=== PATIENT | female | born 2000 | race American Indian/Alaskan Native ===

== ENCOUNTER 2021-06-08 14:14 | Inpatient (IN) | payer MEDICAID ==
[2021-06-08] MEDS ORDERED: LACTATED RINGERS 1,000 ML IV ONE (14:50)
[2021-06-08 15:13] LABS: Bilirubin,Urine NEG (Negative); Blood,Urine SM (Negative); Calcium Oxalate Crystals,Urine 2+; Color,Urine Yellow (Yellow); Hyaline Casts,Urine 1 /LPF; Mucus,Urine 2+ /HPF
[2021-06-08 15:38] LABS: Amphetamine Screen,Urine Negative; Benzodiazepines Screen,Urine Negative; Cocaine Screen,Urine Negative; Methadone Screen,Urine Negative; Opiate Screen,Urine Negative
[2021-06-08 15:51] LABS: Cannabinoid Screen,Urine Positive
[2021-06-08 16:57] LABS: Hematocrit 32.1 % (30.3-42.9); Hemoglobin 10.4 gm/dl (10.1-14.3); Mean Corpuscular HGB Conc 32 % (30-34); Mean Corpuscular Volume 83 fl (79-97); Platelet Count 228 K/mm3 (140-440); Red Blood Count 3.86 M/mm3 (3.65-5.03); Red Cell Distribution Width 15.2 % (13.2-15.2)
[2021-06-08 17:08] LABS: Alanine Aminotransferase 8 units/L (7-56); Albumin 3.3 g/dL (3.9-5); Blood Urea Nitrogen 6 mg/dL (7-17); Calcium 8.9 mg/dL (8.4-10.2); Hemolysis Index 17
[2021-06-08 17:11] LABS: BUN/Creatinine Ratio 12
--- NOTE | 2021-06-08 18:20 | Ultrasound Report ---
US OB LIMITED, US OB BPP WO NON-STRESS INDICATION / CLINICAL INFORMATION: r/o apruption. COMPARISON: None available. FINDINGS: breathing movement = 2 Gross body movement = 2 tone = 2 Qualitative amniotic fluid volume = 2 Total biophysical score = 8/8 Amniotic fluid index is 7.5 cm. Presentation is Cephalic. heart rate is 146 beats per minute. There is a grade 2 anterior placenta. IMPRESSION: 1. biophysical profile = 8/8 2. Amniotic fluid index is within normal limits. Signer Name: Duc Carbajal MD Signed: 06/08/2021 6:15 PM Workstation Name: [id number]
[2021-06-08] MEDS ORDERED: BUTORPHANOL 2 MG/1 ML INJ IV PRN (18:40)
[2021-06-08] MEDS ORDERED: ZOLPIDEM 5 MG TAB PO PRN (18:40)
[2021-06-08] MEDS ORDERED: BUTORPHANOL 2 MG/1 ML INJ ONE (18:42)
--- NOTE | 2021-06-08 18:53 | History and Physical Report ---
History of Present Illness Date of examination: 06/08/21 Date of admission: 06/08/21 14:15 Chief complaint: Abdominal and pelvic pain coupled with vaginal bleeding over past 4 weeks. Patient can not be relied on to present to the hospital due to lack of transportation. She stated she was "hospitalized" at [facility] over the recent past for her complaints. Stated she was not told of reason for her pains or bleeding. Moving on office exam table, today, revealed severe distress that made patient scream out in pains. She was therefore sent in to L&D for evaluation and MFM consultation. Dr. Hemphill responded and recommended delivery as soon as possible on account of her 37+1wks, x2 previous cesareans and concern for uterine incisional dehiscence, abruptio placentae. Dr. Hemphill opined that non of these potentially catastrophic scenarios was worth the risk at term. History of present illness: Abdominal and pelvic pain coupled with vaginal bleeding over past 4 weeks. Patient can not be relied on to present to the hospital due to lack of transportation. She stated she was "hospitalized" at [facility] over the recent past for her complaints. Stated she was not told of reason for her pains or bleeding. Moving on office exam table, today, revealed severe distress that made patient scream out in pains. She was therefore sent in to L&D for evaluati on and MFM consultation. Dr. Hemphill responded and recommended delivery as soon as possible on account of her 37+1wks, x2 previous cesareans and concern for uterine incisional dehiscence, abruptio placentae. Dr. Hemphill opined that non of these potentially catastrophic scenarios was worth the risk at term. Past History Past Medical History: no pertinent history Past Surgical History: section (x2) [employer] History: trichomonas Family/Genetic History: none Social history: lives with family - Obstetrical History Expected Date of Delivery: 06/28/21 Actual Gestation: 37 Week(s) 1 Day(s) : 3 Para: 2 Hx # Term Pregnancies: 2 Medications and Allergies Allergies Allergy/AdvReac Type Severity Reaction Status Date / Time No Known Allergies Allergy Verified 06/08/21 14:48 Home Medications Medication Instructions Recorded Confirmed Last Taken Type One Daily Tablet 1 tab PO 06/08/21 Unknown History Active Meds: Active Medications Butorphanol Tartrate (Butorphanol 2 Mg/1 Ml Inj) 2 mg IV Q2H PRN PRN Reason: Pain , Severe (7-10) Zolpidem Tartrate (Zolpidem 5 Mg Tab) 5 mg PO QHS PRN PRN Reason: Sleep Review of Systems All systems: negative Constitutional: chronic pain Cardiovascular: no chest pain Respiratory: no shortness of breath, no pain on inspiration Breasts: normal Gastrointestinal: abdominal pain Genitourinary: vaginal bleeding, pelvic pain, no leakage of fluid Rectal Exam: deferred Neurological: no head injury Hematologic/Lymphatic: no easy bruising - Vital Signs Vital signs: Vital Signs Pulse BP 73 120/85 06/08/21 15:04 06/08/21 15:04 Temp Pulse Resp BP Pulse Ox 98.3 F 95 H 20 113/75 99 06/08/21 18:02 06/08/21 18:38 06/08/21 15:07 06/08/21 17:42 06/08/21 18:38 - Physical Exam Breasts: Positive: deferred Lungs: Positive: Normal air movement Abdomen: Positive: normal appearance, soft. Negative: guarding Genitourinary (Female): Positive: normal external genitalia, other (material obtained on spec exam revealed old bleeding) Vulva: both: normal Vagina: Positive: discharge (altered blood) Anus/Rectum: Positive: normal perianal skin, heme negative. Negative: rectal mass, hemorrhoids Extremities: Positive: normal Deep Tendon Reflex Grade: Normal +2 - Obstetrical FHR: auscultation normal Cervical Dilatation: 0 Cervical Effacement Percentage: 60 station: VTX 0 Results Result Diagrams: 06/08/21 15:28 06/08/21 15:28 Abnormal lab results 06/08/21 06/08/21 06/08/21 Range/Units 15:02 15:28 15:28 MCH 27 L (28-32) pg Sodium 136 L (137-145) mmol/L Carbon Dioxide 20 L (22-30) mmol/L BUN 6 L (7-17) mg/dL Creatinine 0.5 L (0.6-1.2) mg/dL Alkaline Phosphatase 212 H (35-129) units/L Total Protein 6.2 L (6.3-8.2) g/dL Albumin 3.3 L (3.9-5) g/dL Urine WBC (Auto) 16.0 H (0.0-6.0) /HPF All other labs normal. Assessment and Plan - Patient Problems (1) Term Current Visit: Yes Status: Acute (2) Abdominal pain affecting Current Visit: Yes Status: Acute (3) Vaginal bleeding during , antepartum Current Visit: Yes Status: Acute Plan to address problem: Ultrasound exam, CBC, CMP, UDS, MFM consult. Dr. Hemphill recommended delivery as soon as possible on account of her 37+1wks, x2 previous cesareans and concern for uterine incisional dehiscence, abruptio placentae. Dr. Hemphill opined that non of these potentially catastrophic scenarios was worth the risk at term. (4) Previous delivery affecting , antepartum Current Visit: Yes Status: Acute
[2021-06-08] MEDS ORDERED: BICITRA ORAL LIQD 30ML PO ONE (19:08)
[2021-06-08] MEDS ORDERED: METOCLOPRAMIDE 10 MG/2 ML INJ IV ONE (19:08)
[2021-06-08] MEDS ORDERED: FAMOTIDINE 20 MG/2 ML INJ IV ONE (19:08)
[2021-06-08] MEDS ORDERED: LACTATED RINGERS 1,000 ML IV SCH (19:15)
[2021-06-08] MEDS ORDERED: OXYTOCIN DRIP 30 UNITS/500 ML BAG IV SCH (20:00)
[2021-06-08] MEDS ORDERED: ceFAZolin/Water 2 GM/20 ML 2 GM/20 ML SYRINGE IV NR (20:00)
[2021-06-08 20:39] LABS: Basophils % (Auto) 0.3 % (0.0-1.8); Eosinophils % (Auto) 0.2 % (0.0-4.3); Hematocrit 30.2 % (30.3-42.9); Hemoglobin 9.8 gm/dl (10.1-14.3); Lymphocytes # (Auto) 1.9 K/mm3 (1.2-5.4); Mean Corpuscular HGB Conc 32 % (30-34); Mean Corpuscular Volume 84 fl (79-97); Monocytes # (Auto) 0.8 K/mm3 (0.0-0.8); Monocytes % (Auto) 8.8 % (0.0-7.3); Platelet Count 228 K/mm3 (140-440); Red Blood Count 3.61 M/mm3 (3.65-5.03); Red Cell Distribution Width 15.3 % (13.2-15.2)
[2021-06-08 20:57] LABS: Hepatitis C Virus Antibody Non-Reactive (NonReactive)
[2021-06-09] MEDS ORDERED: METOCLOPRAMIDE 10 MG/2 ML INJ IV ONE (07:00)
[2021-06-09] MEDS ORDERED: FAMOTIDINE 20 MG/2 ML INJ IV ONE (07:00)
[2021-06-09] MEDS ORDERED: ceFAZolin/STERILE WATER 2 GM/20 ML SYRINGE IV NR (07:00)
[2021-06-09] MEDS ORDERED: BICITRA ORAL LIQD 30ML PO ONE (07:00)
--- NOTE | 2021-06-09 07:14 | Anesthesia Day of Surgery ---
Anesthesia Day of Surgery - Day of Surgery Patient Examined: Yes Patient H&P Reviewed: Yes Patient is NPO: Yes Beta Blockers: No Cardiac Clearance: No Pulmonary Clearance: No Jose's Test: N/A
--- NOTE | 2021-06-09 07:18 | Anesthesia Consultation ---
Anesthesia Consult and Med Hx Date of service: 06/09/21 - Airway Anesthetic Teeth Evaluation: Poor ROM Head & Neck: Adequate Mental/Hyoid Distance: Adequate Mallampati Class: Class III Intubation Access Assessment: Probably Good - Pulmonary Exam CTA: Yes - Cardiac Exam Cardiac Exam: RRR - Pre-Operative Health Status ASA Pre-Surgery Classification: ASA3 Proposed Anesthetic Plan: Spinal - Pulmonary Hx Smoking: Yes Hx Asthma: No Hx Respiratory Symptoms: No SOB: No COPD: No Home Oxygen Therapy: No Hx Pneumonia: No Hx Sleep Apnea: No - Cardiovascular System Hx Hypertension: No Hx Coronary Artery Disease: No Hx Heart Attack/AMI: No Hx Angina: No Hx Percutaneous Transluminal Coronary Angioplasty (PTCA): No Hx Cardia Arrhythmia: No Hx Pacemaker: No Hx Internal Defibrillator: No Hx Valvular Heart Disease: No Hx Heart Murmur: No Hx Peripheral Vascular Disease: No - Central Nervous System Hx Neuromuscular Disorder: No Hx Seizures: No CVA: No Hx Back Pain: Yes Hx Psychiatric Problems: No - Gastrointestinal Hx Ulcer: No Hx Gastroesophageal Reflux Disease: Yes - Endocrine Hx Renal Disease: No Hx End Stage Renal Disease: No Hx Cirrhosis: No Hx Liver Disease: No Hx Insulin Dependent Diabetes: No Hx Non-Insulin Dependent Diabetes: No Hx Thyroid Disease: No Hx Hypothyroidism: No Hx Hyperthyroidism: No - Hematic Hx Anemia: Yes Hx Sickle Cell Disease: No - Other Systems Hx Alcohol Use: Yes (before pregenacies) Hx Substance Use: No Hx Cancer: No Hx Obesity: Yes
[2021-06-09] MEDS ORDERED: ONDANSETRON 4 MG/2 ML INJ ONE ×2 (07:44)
[2021-06-09] MEDS ORDERED: fentaNYL 100 MCG/2 ML INJ IV PRN (08:16)
[2021-06-09] MEDS ORDERED: ACETAMINOPHEN 325 MG TAB PO PRN (08:16)
[2021-06-09] MEDS ORDERED: NalbUPHINE 10 MG/1 ML INJ IV PRN (08:16)
[2021-06-09] MEDS ORDERED: BUTORPHANOL 2 MG/1 ML INJ IV PRN (08:16)
[2021-06-09] MEDS ORDERED: PHENYLEPHRINE/NS 1,000 MCG/10 ML SYRINGE (OR USE) IV ONE (08:27)
[2021-06-09] MEDS ORDERED: KETOROLAC 30 MG/1 ML INJ ONE ×2 (09:31)
--- NOTE | 2021-06-09 09:47 | Operative Report ---
Operative Report Operative Report: Date of surgery: June 09, 2021 Preoperative diagnoses: 37 weeks and 2 days gestation, 2 previous sec tions antepartum vaginal bleeding, severe abdominal pains. Postoperative diagnoses: The same plus extensive peritoneal adhesions Operation: Lower segment transverse delivery Surgeon:Neal Robertson MD Automatic Pad Making Machine Operator: Gia Farias CRNA Anesthesia: Spinal block Estimated blood loss: 700 mL Complications: None Findings: There were extensive peritoneal adhesions binding various aspects of the inferior reaches of the greater omentum to both the anterior aspect of the uterus as well as the anterior parietal peritoneum. Further, the left adnexa was obscured in complex adhesions making in visualization of the fallopian tube ovary and the round ligaments difficult. The right fallopian tube and ovary were clearly seen and were grossly normal. The left ovary was partially visualized and was grossly normal. The uterus was remarkable to the extent that he had adherences of peritoneum on its anterior aspect. There was a live baby girl in cephalic presentation weighing 5 pounds 8 ounces with Apgars of 8 and 9. Procedure in detail: The patient was taken to the operating room and given a spinal block. Patient was placed in the straight supine position and a Burk catheter was inserted. The patient was prepped in the abdomen. The drapes were placed. A timeout was done. With the go ahead from the manager implementation, a Pfannenstiel incision was made. This incision was carried across the subcutaneous layer to the fascia which was also divided transversely. The recti abdominis muscle flaps were stripped from the fascia using a combination of blunt and sharp dissections. The muscles were in the midline to gain access to the anterior parietal peritoneum which was divided after excluding any underlying viscera. Extensive peritoneal adhesions were encountered and about 40 minutes was spent to carefully identify and divide the adhesions. The access to the peritoneal cavity was then widened by manual stretching. The bladder blade was applied. The utero vesicle peritoneal flap was divided transversely allowing the bladder to be displaced caudally. The uterine incision was placed in the lower segment transversely. The uterine incision was carried to the decidual layer. The uterine incision was extended on both sides using the bandage scissors. The amniotic sac was ruptured with clear fluid. The head was lifted out of the false maternal pelvis and delivered through the incision using fundal pressure. The airways were bulb suctioned beginning with the mouth. Continuing fundal pressure combined with traction on the mandibular processes of the jaw delivered the rest of the baby. The umbilical cord was double clamped and divided. The baby was carefully transferred to the pediatric team. The placenta was manually removed from the uterine cavity. The uterine cavity was explored and was empty of any placental remnants. The uterine incision was repaired in 2 layers with #1 Vicryl. The surgical line on the uterus was hemostatic. Father adhesiolysis was done to free the greater omentum from a knee identified adherences.. Blood and clots were cleared from the peritoneal cavity. The anterior parietal peritoneum was repaired with #1 Vicryl. The fascia was repaired with #1 Vicryl. The subcutaneous layer was made hemostatic using the Bovie before the skin was closed subcuticularly with 4-0 Vicryl. There were no complications. The estimated blood loss was 700 mL. All sponges and instrument counts were correct. Patient was safely transferred to the recovery room.
[2021-06-09] MEDS ORDERED: OXYTOCIN DRIP 30 UNITS/500 ML BAG IV SCH (10:00)
[2021-06-09] MEDS ORDERED: WITCH HAZEL/ GLYCERIN PAD TP PRN (10:00)
[2021-06-09] MEDS ORDERED: HYDROcodone/ACETAMINOPHEN 5-325 MG TAB PO PRN (10:00)
--- NOTE | 2021-06-09 10:20 | Progress Note ---
Spinal Anesthesia Block - Spinal Anesthesia Block Start Time: 07:54 Stop Time: 08:00 Performed by:: ADIA GONSALVES Procedure: Patient IDed, H&P reviewed, all questions and concerns were answered, and consent was signed. Timeout was performed at bedside. Patient in sitting position. Sterile prep and drape was performed. [3] ml of 1% lidocaine skin wheal at L[3]- L [4]. Needle introducer advanced. 25 gauge spinal needle advanced x2 attempts. Clear, free flowing CSF. negative blood, negative paresthesia. Spinal dose given. All needles removed. Patient tolerated procedure.
[2021-06-09] MEDS ORDERED: NALOXONE 0.4 MG/1 ML INJ IV PRN ×2 (10:30→11:00)
[2021-06-09] MEDS ORDERED: KETOROLAC 30 MG/1 ML INJ IV PRN ×2 (10:30)
[2021-06-09] MEDS ORDERED: ONDANSETRON 4 MG/2 ML INJ IV PRN (10:30)
[2021-06-09] MEDS ORDERED: LANOLIN/ZINC/DIMETHICONE (LANSINOH) 7 GM TP PRN (10:30)
[2021-06-09] MEDS ORDERED: HYDROmorphone 1 MG/1 ML INJ IV PRN (11:00)
[2021-06-09 11:42] LABS: Hematocrit 33.3 % (30.3-42.9); Hemoglobin 10.4 gm/dl (10.1-14.3)
[2021-06-09] MEDS: HYDROmorphone 1 MG/1 ML INJ IV PRN ×2 (12:16→17:51)
[2021-06-09] MEDS ORDERED: LACTATED RINGERS 1,000 ML IV SCH (14:00)
[2021-06-09] MEDS ORDERED: D5W/LACTATED RINGERS 0 ML IV ONE (14:04)
[2021-06-09] MEDS ORDERED: LACTATED RINGERS 1,000 ML ONE (14:07)
[2021-06-09] MEDS: ceFAZolin/NS 1 GM/50 ML 1 GM/50 ML BAG IV SCH ×2 (14:10→21:37)
[2021-06-09] MEDS: MORPHINE 4 MG/1 ML INJ IV PRN ×2 (14:57→20:35)
[2021-06-10] MEDS: IBUPROFEN 800 MG TAB PO PRN ×4 (01:49→20:12)
[2021-06-10] MEDS ORDERED: HYDROcodone/ACETAMINOPHEN 5-325 MG TAB PO PRN ×3 (04:20→04:37)
[2021-06-10] MEDS: HYDROcodone/ACETAMINOPHEN 5-325 MG TAB PO PRN ×4 (04:42→23:15)
--- NOTE | 2021-06-10 10:11 | Progress Note ---
Assessment and Plan - Patient Problems (1) Term Current Visit: Yes Status: Acute (2) Abdominal pain affecting Current Visit: Yes Status: Acute (3) Vaginal bleeding during , antepartum Current Visit: Yes Status: Acute (4) Previous delivery affecting , antepartum Current Visit: Yes Status: Acute (5) Status post repeat low transverse section Current Visit: Yes Status: Acute Plan to address problem: Resting comfortably. observation will continue. Subjective - Subjective Date of service: 06/10/21 Principal diagnosis: Status post day 1 Interval history: Abdominal and pelvic pain coupled with vaginal bleeding over past 4 weeks. Patient can not be relied on to present to the hospital due to lack of transportation. She stated she was "hospitalized" at [facility] over the recent past for her complaints. Stated she was not told of reason for her pains or bleeding. Moving on office exam table, today, revealed severe distress that made patient scream out in pains. She was therefore sent in to L&D for evaluation and MFM consultation. Dr. Hemphill responded and recommended delivery as soon as possible on account of her 37+1wks, x2 previous cesareans and concern for uterine incisional dehiscence, abruptio placentae. Dr. Hemphill opined that non of these potentially catastrophic scenarios was worth the risk at term. Patient reports: appetite normal, voiding normally, pain well controlled, flatus, ambulating normally : doing well Objective - Vital Signs Latest vital signs: Vital Signs Temp Pulse Resp BP BP BP Pulse Ox 06/10/21 08:25 97.9 F 69 18 110/77 06/10/21 05:13 98.6 F 77 16 114/78 06/10/21 04:42 06/10/21 01:49 06/10/21 00:49 99.8 F H 81 18 111/56 100 06/09/21 22:51 20 06/09/21 20:35 20 06/09/21 20:19 99.0 F 99 H 18 140/86 100 06/09/21 15:39 98.3 F 80 20 127/91 100 06/09/21 14:57 06/09/21 11:25 97.3 F L 55 L 20 113/81 100 06/09/21 10:45 61 15 109/69 98 06/09/21 10:30 57 L 14 108/67 98 06/09/21 10:15 59 L 14 109/69 99 Intake and Output 06/09/21 06/10/21 06/10/21 23:59 07:59 15:59 Intake Total 240 200 360 Output Total 2200 600 900 Balance -1960 -400 -540 Intake: Oral 240 200 360 Output: Urine 2200 600 900 Indwelling Catheter 1400 Void 800 600 900 Other: Total, Intake Amount 240 200 360 Total, Output Amount 800 600 900 # Voids Void 1 1 3 - Exam Breasts: Present: normal Lungs: Present: Normal air movement Abdomen: Present: normal appearance, soft, normal bowel sounds Uterus: Present: normal, firm Extremities: Present: normal Deep Tendon Reflex Grade: Normal +2 Incision: Present: normal, dry, intact
[2021-06-10] MEDS: PRENATAL VIT27-FE FUMARATE-FOLIC ACID VIT TAB PO SCH (10:12)
[2021-06-10] MEDS: FERROUS SULFATE 325 MG TAB PO SCH (10:13)
[2021-06-11] MEDS: IBUPROFEN 800 MG TAB PO PRN ×2 (04:47→13:15)
[2021-06-11] MEDS: FERROUS SULFATE 325 MG TAB PO SCH (09:24)
[2021-06-11] MEDS: HYDROcodone/ACETAMINOPHEN 5-325 MG TAB PO PRN (09:24)
[2021-06-11] MEDS: PRENATAL VIT27-FE FUMARATE-FOLIC ACID VIT TAB PO SCH (09:24)
--- NOTE | 2021-06-11 12:11 | Progress Note ---
Assessment and Plan - Patient Problems (1) Term Current Visit: Yes Status: Acute (2) Abdominal pain affecting Current Visit: Yes Status: Acute (3) Vaginal bleeding during , antepartum Current Visit: Yes Status: Acute (4) Previous delivery affecting , antepartum Current Visit: Yes Status: Acute (5) Status post repeat low transverse section Current Visit: Yes Status: Acute Plan to address problem: ready for home. Subjective - Subjective Date of service: 06/11/21 Principal diagnosis: Status post day 2 Interval history: Abdominal and pelvic pain coupled with vaginal bleeding over past 4 weeks. Patient can not be relied on to present to the hospital due to lack of transportation. She stated she was "hospitalized" at [facility] over the recent past for her complaints. Stated she was not told of reason for her pains or bleeding. Moving on office exam table, today, revealed severe distress that made patient scream out in pains. She was therefore sent in to L&D for evaluation and MFM consultation. Dr. Hemphill responded and recommended delivery as soon as possible on account of her 37+1wks, x2 previous cesareans and concern for uterine incisional dehiscence, abruptio placentae. Dr. Hemphill opined that non of these potentially catastrophic scenarios was worth the risk at term. Patient reports: appetite normal, voiding normally, pain well controlled [place]: doing well Objective - Vital Signs Latest vital signs: Vital Signs Temp Pulse Resp BP 06/11/21 08:25 97.9 F 74 20 109/54 06/11/21 04:47 20 06/10/21 23:15 20 06/10/21 20:12 20 06/10/21 16:20 98.2 F 81 18 109/64 06/10/21 12:45 97.9 F 72 18 125/85 Intake and Output 06/10/21 06/11/21 06/11/21 23:59 07:59 15:59 Intake Total 240 200 360 Balance 240 200 360 Intake: Oral 240 200 360 Other: Total, Intake Amount 240 200 360 # Voids Void 1 1 - Exam Breasts: Present: deferred Lungs: Present: Normal air movement Abdomen: Present: normal appearance, soft, normal bowel sounds Uterus: Present: normal, firm Extremities: Present: normal Deep Tendon Reflex Grade: Normal +2 Incision: Present: normal, dry, intact
--- NOTE | 2021-06-11 12:14 | Discharge Summary ---
Providers - Providers Date of Admission: 06/09/21 08:16 Date of discharge: 06/11/21 Attending physician: NANCIE CHENEY MD Primary care physician: NANCIE CHENEY MD Hospitalization Reason for admission: section, observation, other (Unexplained abd pain) Delivery: Procedure: section, other (adhesiolysis) Episiotomy: none Laceration: none Incision: normal, dry, intact Other procedures: none complications: none Discharge diagnosis: IUP at term delivered baby: female Condition at discharge: Good Disposition: DC-01 TO HOME OR SELFCARE - Discharge Diagnoses (1) Term Status: Acute (2) Abdominal pain affecting Status: Acute (3) Vaginal bleeding during , antepartum Status: Acute (4) Previous delivery affecting , antepartum Status: Acute (5) Status post repeat low transverse section Status: Acute Plan - Provider Discharge Summary Activity: routine, no sex for 6 weeks, no heavy lifting 4 weeks, no strenuous ex ercise Diet: routine Instructions: routine (Script on file for Norde5) Additional instructions: [] Smoking cessation referral if applicable(refer to patient education folder for contact #) [] Refer to [facility] Booklet Call your doctor immediately for: * Fever > 100.5 * Heavy vaginal bleeding ( >1 pad per hour) * Severe persistent headache * Shortness of breath * Reddened, hot, painful area to leg or breast * Drainage or odor from incision. * Keep incision clean and dry at all times and follow doctor's instructions regarding bathing/showering - Follow up plan Follow up: NANCIE CHENEY MD [Primary Care Provider] - 7 Days
--- NOTE | 2021-06-11 14:41 | Post Anesthesia Evaluation ---
- Post Anesthesia Evaluation Patient Participated: Yes Airway Patent: Yes Stable Respiratory Function: Yes Nausea/Vomiting: No Temp > 96.8F: Yes Pain Manageable: Yes Adequeate Hydration: Yes Anesthesia Complications: No Block Receding Appropriately: Yes Patient on Ventilator: No
[2021-06-11 16:59] VITALS: BP 126/68
== END 2021-06-11 15:15 | disposition home or self-care (01) | DRG 766 ==
LOC: TRG 14:14 → LD 14:15 → APU 14:16 → TRG 14:50 → OBSVTOIN 06-09 08:16 → OB 06-09 11:21
PROVIDERS: ADMIT Obstetrics & Gynecology; ATTEND Obstetrics & Gynecology
PROC: 10D00Z1 Extraction of Products of Conception, Low, Open Approach (ICD-10-PCS; principal; 2021-06-09)
PROC: 0DNW0ZZ Release Peritoneum, Open Approach (ICD-10-PCS; 2021-06-09)
DX: O34.211 Maternal care for low transverse scar from previous cesarean delivery (principal); O99.334 Smoking (tobacco) complicating childbirth; Z20.822 Contact with and (suspected) exposure to COVID-19; O99.62 Diseases of the digestive system complicating childbirth; O99.214 Obesity complicating childbirth; O99.63 Diseases of the digestive system complicating the puerperium; K66.0 Peritoneal adhesions (postprocedural) (postinfection); Z37.0 Single live birth; Z3A.37 37 weeks gestation of pregnancy
CPT/HCPCS: 36415; 59025; 76815; 76819; 80053; 80307; 81001; 85014; 85018; 85025; 85027; 85461; 86592; 86706; 86762; 86803; 86850; 86900; 86901; 87086; 87806; 88307; G0378; J0595; J0690; J1170; J1885; J2270; J2370; J2405; J2765; J2790; J3490; J7120; U0003